=== PATIENT | male | born 1965 | race Caucasian/White ===

== ENCOUNTER 2017-09-24 05:38 | Observation (INO) | payer BC ==
--- OUTSIDE RECORDS SUMMARY | 2017-09-24 05:40 | XMS REPORT | Clinical Summary ---
:1965 Author Organization [facility] Address [address] [place] [address] Care Team Providers Name Role Phone Caio Hopper MD Primary Care Provider Allergies No Known Allergies Current Medications Prescription Sig. Disp. Refills Start Date End Date Status amitriptyline TAKE 2 TABLET 4 12/30/2015 Active (ELAVIL) 10 MG BY MOUTH tablet DIRECTED 3 HOURS BEFORE BEDTIME omega-3 acid ethyl Take 2 g by 3 10/25/2015 Active esters (LOVAZA) 1 mouth 2 (two) gram capsule times a day. potassium chloride Take 20 mEq by 3 10/14/2015 Active (K-DUR) 20 MEQ CR mouth once tablet daily. irbesartan-hydrochl Take 1 tablet 4 11/19/2015 Active orothiazide by mouth once (AVALIDE) 150-12.5 daily. mg per tablet VITAMIN D2 50,000 Take 1 capsule 3 12/30/2015 Active unit capsule by mouth once a week. FOLBIC 2.5-25-2 mg Take 1 tablet 3 11/23/2015 Active tablet by mouth once daily. acetaminophen Take 325 mg by Active (TYLENOL) 325 MG mouth every 6 tablet (six) hours as needed for fever. rosuvastatin Take 20 mg by 2 02/24/2017 Active (CRESTOR) 20 MG mouth once tablet daily. sodium,potassium,ma As directed 354 mL 0 01/14/2016 02/22/2017 Discontinued g sulfates (SUPREP BOWEL PREP KIT) 17.5-3.13-1.6 gram recon solnIndications: Colon cancer screening traMADol (ULTRAM) Take 1 tablet 25 tablet 0 02/22/2017 03/01/2017 50 mg tablet (50 mg total) by mouth every 6 (six) hours as needed for moderate pain for up to 7 days. Active Problems Problem Noted Date Acute appendicitis 01/26/2017 Encounters Date Type Specialty Care Team Description 03/02/2017 Office Visit General Surgery Kenton Mckinney MD follow-up (Primary Dx) 02/22/2017 Hospital Encounter General Surgery Kenton Mckinney MD 02/22/2017 Procedure Pass General Surgery 02/22/2017 Surgery General Surgery Kenton Mckinney ROBOTIC LEFT INGUINAL MD Leoncio HERNIA REPAIR 02/19/2017 Anesthesia Event General Surgery SkyyahirmeghanKimmanny, FLOYD 02/10/2017 Pre-Admit Testing Pre-Admission Kenton Mckinney Preop testing Appointment Testing MD Leoncio (Primary Dx) 01/26/2017 Office Visit General Surgery Kenton Mckinney Non-recurrent MD Leoncio unilateral inguinal hernia without obstruction or gangrene (Primary Dx) after 09/23/2016 Family History Medical History Relation Name Comments Heart disease Father Pancreatic cancer Maternal Grandfather Relation Name Status Comments Father Maternal Grandfather Social History Tobacco Use Types Packs/Day Years Used Date Former Smoker Quit: 01/28/1998 Comments: chew tobacco Alcohol Use Drinks/Week oz/Week Comments Yes 1-2 Glasses of wine 0.6 - 1.2 Sex Assigned at Date Recorded Not on file Last Filed Vital Signs Vital Sign Reading Time Taken Blood Pressure 124/80 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 Pulse 70 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 Temperature 36.1 C (96.9 F) 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 Respiratory Rate 18 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 Oxygen Saturation 96% 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 Inhaled Oxygen Concentration - - Weight 93.2 kg (205 lb 6.4 oz) 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 Height 180.3 cm (5' 11") 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 Body Mass Index 28.65 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 Plan of Treatment Health Maintenance Due Date Last Done Comments COLON CANCER SCREENING 2014 SHINGRIX VACCINE (#1) 2014 INFLUENZA VACCINE 11/24/2017 Implants Implanted Type Area Railroad Track Mechanic Device Expiration Model / Identifier Date Serial / Lot Mesh Surgcl Progrip [id number] [facility] - [id number] Surgical Left: COVIDIEN 09/24/2019 [id number] / Implanted: Qty: 1 on 02/22/2017 by Kenton Mckinney MD Mesh or Inguinal / Tissue [id number] [employer] Procedures Procedure Name Priority Date/Time Associated Diagnosis Comments PA AN ELECTIVE Routine 02/22/2017 7:58 AM ENDOTRACHEAL AIRWAY CDT Procedure Note - Annemarie Sharp MD - 02/22/2017 7:56 AM CDT Airway Date/Time: 02/22/2017 7:45 AM Performed by: ANNEMARIE SHARP Authorized by: ANNEMARIE SHARP Location: OR Urgency: Elective Difficult Airway: No Anesthesiologist: ANNEMARIE SHARP Performed by: anesthesiologist Preoxygenated with 100% O2: Yes C-spine Precautions Maintained Throughout: No Mask Ventilation: Easy mask (OPA needed) Final Airway Type: Endotracheal airway Final Endotracheal Airway: ETT Cuffed: Yes Technique Used: Direct laryngoscopy Devices/Methods Used in Placement: Intubating stylet Insertion Site: Oral Blade Type: Cooper Laryngoscope Blade/Videolaryngoscope Blade Size: 2 ETT Size (mm): 8.0 Cuff at minimum occlusion pressure: Yes Measured from: Lips ETT to Lips (cm): 23 Placement Verified by: CO2 detection, direct visualization and equal breath sounds Laryngoscopic view: Grade IIb - view of arytenoids or posterior of glottis only Rapid Sequence Induction (RSI): No Modified RSI: No Number of Attempts at Approach: 1 ROBOTIC LEFT INGUINAL HERNIA 02/22/2017 7:30 AM CDT Hernia, inguinal, left REPAIR Case Notes DAVINCI after 09/23/2016 Results ECG Pre/Post Op (02/10/2017 2:06 PM) Component Value Ref Range Ventricular rate 62 Atrial rate 62 PA interval 186 QRSD interval 110 QT interval 424 QTC interval 430 P axis 1 60 QRS axis 1 25 T wave axis 45 EKG impression Normal sinus rhythm-Normal ECG-No previous ECGs available- Specimen Performing Laboratory [facility] [address] [place] [address] Estimated GFR (02/10/2017 1:54 PM) Component Value Ref Range GFR Non Af Amer 78 mL/min/1.73 m2 GFR Af Amer >90 mL/min/1.73 m2 Comment: Chronic kidney disease: <60 mL/min/1.73m2 Kidney failure: <15 mL/min/1.73m2 The estimated GFR is calculated from the IDMS-traceable Modification of Diet in Renal Disease Equation. The accuracy of the calculation is poor when the creatinine is normal. Calculated values >90 mL/min/1.73m2 are not reported. This equation has not been validated in children (<18 years), women, the elderly (>70 years), or ethnic groups other than Caucasians and Americans. Specimen Performing Laboratory Plasma specimen [facility] DEPARTMENT OF PATHOLOGY AND GENOMIC MEDICINE [address] [place] [id number] CBC hemogram (02/10/2017 1:54 PM) Component Value Ref Range WBC 6.51 4.50 - 11.00 k/uL RBC 4.93 4.40 - 6.00 m/uL HGB 14.6 14.0 - 18.0 g/dL HCT 44.4 41.0 - 51.0 % MCV 90.1 82.0 - 100.0 fL MCH 29.6 27.0 - 34.0 pg MCHC 32.9 31.0 - 37.0 g/dL RDW - SD 43.6 37.0 - 55.0 fL MPV 10.0 8.8 - 13.2 fL Platelet count 237 150 - 400 k/uL Nucleated RBC 0.00 /100 WBC Specimen Performing Laboratory Blood [facility] DEPARTMENT OF PATHOLOGY AND GENOMIC MEDICINE [address] [place] [id number] Basic metabolic panel (02/10/2017 1:54 PM) Component Value Ref Range Sodium 144 135 - 148 mEq/L Potassium 4.2 3.5 - 5.0 mEq/L Chloride 102 98 - 112 mEq/L CO2 28 24 - 31 mEq/L Anion gap 14 7 - 15 mEq/L Comment: Starting from July , anion gap calculation no longer incorporates potassium. Please note the change. BUN 11 6 - 20 mg/dL Creatinine 1.0 0.7 - 1.2 mg/dL Glucose 85 65 - 99 mg/dL Calcium 9.6 8.3 - 10.2 mg/dL Specimen Performing Laboratory Plasma specimen [facility] DEPARTMENT OF PATHOLOGY AND GENOMIC MEDICINE [address] [place] [id number] after 09/23/2016 Insurance Payer Benefit Plan / Group Subscriber ID Type Phone Address BCBS BCBS CHOICE PPO/FEDERAL EMPL PPO xxxxxxxxxxxx PPO Work: Jerry ADRIAN [phone] [address], [place]: [place] [id number]
[2017-09-24] MEDS ORDERED: MORPHINE 4 MG/ML SYR ONE (05:58)
[2017-09-24] MEDS ORDERED: ONDANSETRON 4 MG/2 ML VIAL ONE ×2 (05:58→10:46)
[2017-09-24 06:09] LABS: Absolute Monocytes 1.5 K/uL (0.1-1.3); Absolute Neutrophil 7.6 K/uL (1.8-8.0); Basophils % 0.9 % (0-1.3); Eosinophils % 1.6 % (0-4.4); Hematocrit 46.4 % (39.6-49.0); Lymphocytes % 29.5 % (15.3-44.8); MCH 29.7 pg (27.0-35.0); MPV 8.4 fL (7.6-11.3); Monocytes % 11.4 % (3.3-12.3); RBC Red Blood Cell Count 5.15 M/uL (4.33-5.43)
[2017-09-24] MEDS ORDERED: KETOROLAC 30 MG/ML INJ ONE ×2 (06:24→11:13)
[2017-09-24] MEDS ORDERED: FENTANYL CITR 100 MCG/2 ML ONE ×3 (06:47→10:45)
[2017-09-24] MEDS ORDERED: NA CHLORIDE 0.9% 0 ML ONE (06:48)
[2017-09-24 06:51] LABS: Albumin 4.3 g/dL (3.2-5.5); Bilirubin Direct 0.2 mg/dL (0-0.2); Bilirubin Total 0.6 mg/dL (0.3-1.2)
[2017-09-24] MEDS ORDERED: NA CHLORIDE 0.9% 1,000 ML ONE ×2 (06:58→08:00)
--- NOTE | 2017-09-24 07:17 | RAD REPORT ---
EXAM DESCRIPTION: CT - Stone Protocol - 09/24/2017 6:59 am CLINICAL HISTORY: Right-sided flank pain, difficulty urinating COMPARISON: None. TECHNIQUE: Axial 5 mm thick images were obtained without oral or IV contrast. The [id number] span s the entirety of the system partially obscuring uppermost abdomen and lung bases. All CT scans are performed using dose optimization technique as appropriate and may include automated exposure control or mA/KV adjustment according to patient size. FINDINGS: Mild right-sided hydronephrosis is present secondary to a 3 millimeter stone at the UVJ. N o other obstructing or nonobstructing calculi in either kidney. A 12 millimeter round exophytic mass lower pole right kidney has the attenuation of the cyst. There is a 3 centimeter oval mass in the kaye tral left kidney also with homogeneous fluid attenuation. No suspicious renal masses. Isodense masses and pyelonephritis are not excluded on a stone protocol CT scan. Partially filled urinary bladder sh ows no suspicious finding. Imaged portions of the liver, spleen and pancreas show no suspicious findings on non-contrast imaging . No gallbladder or biliary tree abnormality identified. No significant adrenal finding. No suspicious bowel findings. No hernia, mass or bulky lymphadenopathy noted. No free air, free fluid or inflammatory stranding. No significant bony abnormality. IMPRESSION: Mild right-sided hydronephrosis secondary to a 3 mm UVJ calculus. Isodense masses and pyelonephritis are not excluded on stone protocol technique.
[2017-09-24] MEDS ORDERED: CEFTRIAXONE/SWI 1gm 1 GM/10 ML SYR ONE (08:00)
--- NOTE | 2017-09-24 08:24 | ER ---
Nurse's Notes [facility] Name: oG Ferrer Jr Age: 51 yrs Sex: Male : 1965 Arrival Date: 09/24/2017 Time: 05:40 Bed 2 Private MD: Sami Mcmanus Diagnosis: Calculus of ureter-Right Presentation: 09/24 05:48 Presenting complaint: Patient states: he is having right sided flank pain since 0300 bb this morning with difficulty urinating pt is unable to keep still or sit on the stretcher due to the pain. Transition of care: patient was not received from another setting of care. Onset of symptoms was September 24, 2017 at 03:00. Risk Assessment: Do you want to hurt yourself or someone else? Patient reports no desire to harm self or others. Initial Sepsis Screen: Does the patient meet any 2 criteria? No. Patient's initial sepsis screen is negative. Does the patient have a suspected source of infection? No. Patient's initial sepsis screen is negative. Care prior to arrival: None. 05:48 Method Of Arrival: Ambulatory bb 05:48 Acuity: DHIRAJ 3 bb Historical: - Allergies: 05:51 No Known Allergies; bb - Home Meds: 05:51 BP med [Active]; cholesterol med [Active]; bb - PMHx: 05:51 Hypertension; Hyperlipidemia; bb - PSHx: 05:51 Appendectomy; Addenoids; bb - Immunization history:: Adult Immunizations up to date. - Social history:: Smoking status: Patient/guardian denies using tobacco, Patient uses alcohol, occasionally. Patient/guardian denies using street drugs. - Ebola Screening: : Patient negative for fever greater than or equal to 101.5 degrees Fahrenheit, and additional compatible Ebola Virus Disease symptoms. Screenin:55 Abuse screen: Denies threats or abuse. Nutritional screening: No deficits noted. jd3 Tuberculosis screening: No symptoms or risk factors identified. Fall Risk IV access (20 points). Mental Status- Oriented to own ability (0 pts). Total Ruiz Fall Scale indicates No Risk (0-24 pts). Assessment: 05:52 General: Appears uncomfortable, Behavior is cooperative, appropriate for age. Pain: jd3 Complains of pain in anterior aspect of left lateral abdomen, posterior aspect of left lateral abdomen, anterior aspect of right lateral abdomen and posterior aspect of right lateral abdomen Pain currently is 10 out of 10 on a pain scale. Quality of pain is described as sharp, Pain began 3 hours ago. Also complains of nausea. Neuro: Level of Consciousness is awake, alert, obeys commands, Oriented to person, place, time, situation. Cardiovascular: Heart tones S1 S2 present Capillary refill < 3 seconds Patient's skin is warm and dry. Respiratory: Airway is patent Respiratory effort is even, unlabored, Respiratory pattern is regular, symmetrical, Breath sounds are clear bilaterally. GI: Abdomen is round Bowel sounds present X 4 quads. Abd is soft and non tender X 4 quads. Reports nausea, vomiting. : No signs and/or symptoms were reported regarding the genitourinary system. EENT: No signs and/or symptoms were reported regarding the EENT system. Derm: Skin is intact, Skin is diaphoretic, Skin is normal, Skin temperature is warm. Musculoskeletal: Circulation, motion, and sensation intact. Capillary refill < 3 seconds. 07:51 Reassessment: Abhishek RAMIREZ at bedside re evaluating pt at this time, updating on POC, pt sg to be admitted, awaiting admission orders at this time. 08:10 Reassessment: Patient appears in no apparent distress at this time. Patient is alert, sg oriented x 3, equal unlabored respirations, skin warm/dry/pink. pt assisted to the restroom via wheelchair, pt to void x1, provided with supplies and instructions for clean catch urine specimen. 08:30 Reassessment: pt back in bed at this time, pt family and friends at bedside. sg 08:49 Reassessment: Patient appears in no apparent distress at this time. Patient is alert, sg oriented x 3, equal unlabored respirations, skin warm/dry/pink. pt family member at nurses station, reports that the pts pain is returning, Abhsihek RAMIREZ notified, awaiting orders at this time. Vital Signs: 05:51 BP 171 / 111; Pulse 65; Resp 20 S; Temp 100.4(O); Pulse Ox 99% on R/A; Weight 90.72 kg bb (R); Height 5 ft. 10 in. (177.80 cm) (R); Pain 10/10; 06:07 BP 173 / 99; Pulse 68; Resp 20 S; Pulse Ox 99% on R/A; Pain 10/10; jd3 07:25 BP 157 / 90; Pulse 71; Resp 17 S; Temp 98.1; Pulse Ox 100% on R/A; Pain 10/10; sg 08:32 BP 147 / 83; Pulse 77; Resp 18 S; Pulse Ox 100% on R/A; Pain 6/10; sg 05:51 Body Mass Index 28.70 (90.72 kg, 177.80 cm) bb ED Course: 05:40 Patient arrived in ED. am2 05:40 Sami Mcmanus MD is Private Physician. am2 05:49 Triage completed. bb 05:51 Arm band placed on Patient placed in an exam room, on a stretcher, on pulse oximetry. bb Family accompanied patient. 05:52 Tomas Santiago RN is Primary Nurse. jd3 05:55 Patient has correct armband on for positive identification. Bed in low position. Call jd3 light in reach. Side rails up X2. Adult w/ patient. 05:57 Inserted saline lock:. mg2 05:57 Inserted saline lock: 20 gauge in right antecubital area, using aseptic technique. ea Blood collected. 06:26 Masood Tsang PA is PHCP. cp 06:26 Russ Killian MD is Attending Physician. cp 06:[address] Patient moved to CT via wheelchair. kw1 06:59 CT Stone Protocol In Process Unspecified. EDMS 07:00 CT completed. Patient tolerated procedure well. Patient moved back from CT. kw1 07:41 Primary Nurse role handed off by Tomas Santiago RN sg 07:41 Girish Calderon RN is Primary Nurse. sg 07:56 Fili Beasley MD is Attending Physician. cp 08:10 First set of blood cultures drawn by il, by venipuncture 23G to left ac. dh3 08:23 Windy Pineda MD is Hospitalizing Provider. cp 09:40 No provider procedures requiring assistance completed. Patient admitted, IV remains in sg place. intact, No redness/swelling at site. Administered Medications: 06:02 Drug: morphine 4 mg Route: IVP; Site: right antecubital; jd3 06:26 Follow up: Response: No adverse reaction; Pain is unchanged, physician notified mg2 06:02 Drug: Zofran 4 mg Route: IVP; Site: right antecubital; jd3 06:26 Follow up: Response: No adverse reaction mg2 06:25 Drug: TORadol 30 mg Route: IVP; Site: right antecubital; mg2 07:04 Follow up: Response: No adverse reaction; Pain is decreased mg2 07:03 Drug: NS 0.9% 1000 ml Route: IV; Rate: 1 bolus; Site: right antecubital; mg2 07:03 Drug: fentaNYL (PF) 25 mcg Route: IVP; Site: right antecubital; mg2 08:00 Follow up: Response: No adverse reaction; Pain is decreased sg 08:22 Not Given (Physician Discretion): Tylenol 1000 mg PO once sg 08:55 Drug: NS 0.9% 1000 ml Route: IV; Rate: 125 ml/hr; Site: right antecubital; sg 09:01 Drug: fentaNYL (PF) 50 mcg Route: IVP; Site: right antecubital; aa5 09:09 Drug: Rocephin - (cefTRIAXone) 1 grams Route: IVPB; Infused Over: 30 mins; Site: right sg antecubital; 09:10 Follow up: Response: No adverse reaction; IV Status: Completed infusion; medication sg administered slow IVP as per pharmacy 09:48 Not Given (Other Intervention Used): NS 0.9% (30 ml/kg) 30 ml/kg IV at bolus once; sg Sepsis Protocol Intake: Outcome: 08:24 Decision to Hospitalize by Provider. cp 09:40 Admitted to OR accompanied by nurse, family with patient, via wheelchair, room 204, sg with chart, Report called to Bedside report given to Beverley PAZ 09:40 Condition: stable 09:40 Instructed on the need for admit, safety practices, Demonstrated understanding of instructions. 09:49 Patient left the ED. sg Signatures: Dispatcher [employer] EDMS Girish Calderon RN RN sg Radha Cotton RN Hanane Long RN RN aa5 Masood Tsang PA PA Gretchen Vasquez am2 Laly Jacobo 3 Sydni Long RN RN ea Davies, Jonathon, RN RN jd3 Lesly Cook kw1 Zachary Carlson RN RN mg2 Corrections: (The following items were deleted from the chart) 06:04 05:52 GI: Abdomen is round Bowel sounds present X 4 quads. jd3 jd3 06:04 05:52 Derm: Skin is intact, Skin is dry, Skin is normal, Skin temperature is warm jd3 jd3
--- NOTE | 2017-09-24 08:24 | EDPHYS ---
Physician Documentation [facility] Name: Go Ferrer Jr Age: 51 yrs Sex: Male : 1965 Arrival Date: 09/24/2017 Time: 05:40 Bed 2 Private MD: Sami Mcmanus ED Physician Fili Beasley HPI: 09/24 06:15 This 51 yrs old Male presents to ER via Ambulatory with complaints of Flank cp Pain. 06:15 The patient complains of pain in the right flank. The pain radiates to the abdomen. cp Onset: The symptoms/episode began/occurred this morning, at 03:00. Associated signs and symptoms: Pertinent positives: fever, Pertinent negatives: diarrhea, vomiting. Severity of pain: in the emergency department the pain is actually worse moderately. Historical: - Allergies: 05:51 No Known Allergies; bb - Home Meds: 05:51 BP med [Active]; cholesterol med [Active]; bb - PMHx: 05:51 Hypertension; Hyperlipidemia; bb - PSHx: 05:51 Appendectomy; Addenoids; bb - Immunization history:: Adult Immunizations up to date. - Social history:: Smoking status: Patient/guardian denies using tobacco, Patient uses alcohol, occasionally. Patient/guardian denies using street drugs. - Ebola Screening: : Patient negative for fever greater than or equal to 101.5 degrees Fahrenheit, and additional compatible Ebola Virus Disease symptoms. ROS: 06:20 Constitutional: Positive for fever, Negative for body aches, chills. cp 06:20 Eyes: Negative for injury, pain, redness, and discharge. cp 06:20 ENT: Negative for drainage from ear(s), ear pain, sore throat, difficulty swallowing, difficulty handling secretions. 06:20 Cardiovascular: Negative for chest pain, edema, palpitations. 06:20 Respiratory: Negative for cough, shortness of breath, wheezing. 06:20 Abdomen/GI: Positive for abdominal pain, nausea, Negative for vomiting, diarrhea, constipation, anorexia, dysphagia, black/tarry stool, rectal bleeding. 06:20 Back: Positive for flank pain, on the right, Negative for injury or acute deformity, decreased range of motion. 06:20 Skin: Negative for cellulitis, rash. 06:20 Neuro: Negative for altered mental status, headache, weakness. 06:20 All other systems are negative. Exam: 06:25 Head/Face: Normocephalic, atraumatic. Eyes: Pupils equal round and reactive to light, cp extra-ocular motions intact. Lids and lashes normal. Conjunctiva and sclera are non-icteric and not injected. Cornea within normal limits. Periorbital areas with no swelling, redness, or edema. ENT: Nares patent. No nasal discharge, no septal abnormalities noted. Tympanic membranes are normal and external auditory canals are clear. Oropharynx with no redness, swelling, or masses, exudates, or evidence of obstruction, uvula midline. Mucous membranes moist. Neck: Trachea midline, no thyromegaly or masses palpated, and no cervical lymphadenopathy. Supple, full range of motion without nuchal rigidity, or vertebral point tenderness. No Meningismus. Chest/axilla: Normal chest wall appearance and motion. Nontender with no deformity. No lesions are appreciated. 06:25 Constitutional: The patient appears alert, awake, non-toxic, well developed, well nourished, in obvious pain, uncomfortable. 06:25 Cardiovascular: Rate: normal, Rhythm: regular, Edema: is not appreciated, JVD: is not appreciated. 06:25 Respiratory: the patient does not display signs of respiratory distress, Respirations: normal, no use of accessory muscles, no retractions, no splinting, no tachypnea, labored breathing, is not present, Breath sounds: are clear throughout, no decreased breath sounds, no stridor, no wheezing. 06:25 Abdomen/GI: Inspection: abdomen appears normal, Bowel sounds: active, all quadrants, Palpation: soft, in all quadrants, moderate abdominal tenderness, in the right upper quadrant and right lower quadrant, rebound tenderness, is not appreciated, voluntary guarding, is elicited in the right upper quadrant and right lower quadrant. 06:25 Back: CVA tenderness, is noted on the right. 06:25 Skin: cellulitis, is not appreciated, no rash present. 06:25 Neuro: Orientation: to person, place \T\ time. Mentation: lucid, able to follow commands, Cerebellar function: is grossly normal, Motor: moves all fours, strength is normal, Sensation: no obvious gross deficits. Vital Signs: 05:51 BP 171 / 111; Pulse 65; Resp 20 S; Temp 100.4(O); Pulse Ox 99% on R/A; Weight 90.72 kg bb (R); Height 5 ft. 10 in. (177.80 cm) (R); Pain 10/10; 06:07 BP 173 / 99; Pulse 68; Resp 20 S; Pulse Ox 99% on R/A; Pain 10/10; jd3 07:25 BP 157 / 90; Pulse 71; Resp 17 S; Temp 98.1; Pulse Ox 100% on R/A; Pain 10/10; sg 08:32 BP 147 / 83; Pulse 77; Resp 18 S; Pulse Ox 100% on R/A; Pain 6/10; sg 05:51 Body Mass Index 28.70 (90.72 kg, 177.80 cm) bb MDM: 06:26 Patient medically screened. cp 07:25 Data reviewed: vital signs, nurses notes, lab test result(s), radiologic studies, CT cp scan. 07:54 Physician consultation: Ambrose Allen MD was called at 07:50, was contacted at 07:50, regarding consult, patient's condition, and will see patient later today. 09/24 05:58 Order name: Amylase, Serum; Complete Time: 07:23 aa09/24 05:58 Order name: Basic Metabolic Panel; Complete Time: 07:23 aa09/24 07:23 Interpretation: Normal except: GLUC 127; GFR 64. cp 09/24 05:58 Order name: CBC with Diff; Complete Time: 06:29 aa09/24 09:38 Interpretation: Normal except: WBC 13.4; MNA 1.5. cp 09/24 05:58 Order name: Creatinine for Radiology; Complete Time: 07:23 aa09/24 05:58 Order name: Hepatic Function; Complete Time: 07:23 aa09/24 07:23 Interpretation: Normal except: GLOB 3.7. cp 09/24 05:58 Order name: Lipase; Complete Time: 07:23 aa09/24 05:58 Order name: Urine Microscopic Only; Complete Time: 09:37 aa1 09/24 09:38 Interpretation: Normal except: UBACT 20-50. cp 09/24 05:58 Order name: CT Stone Protocol; Complete Time: 07:23 aa1 09/24 07:26 Order name: Lactate; Complete Time: 09:37 cp 09/24 07:26 Order name: Procalcitonin; Complete Time: 09:37 cp 09/24 07:26 Order name: Blood Culture Adult (2) cp 09/24 08:28 Order name: Urine Dipstick--Ancillary (enter results); Complete Time: 09:37 bd 09/24 09:38 Interpretation: Normal except: USPGR >1.030; UBLD 2+. cp 09/24 05:58 Order name: IV Saline Lock; Complete Time: 06:03 aa1 09/24 05:58 Order name: Labs collected and sent; Complete Time: 06:03 aa1 09/24 06:05 Order name: Urine Dipstick-Ancillary (obtain specimen); Complete Time: 08:27 jd3 09/24 07:26 Order name: NPO; Complete Time: 07:33 cp Administered Medications: 06:02 Drug: morphine 4 mg Route: IVP; Site: right antecubital; jd3 06:26 Follow up: Response: No adverse reaction; Pain is unchanged, physician notified mg2 06:02 Drug: Zofran 4 mg Route: IVP; Site: right antecubital; jd3 06:26 Follow up: Response: No adverse reaction mg2 06:25 Drug: TORadol 30 mg Route: IVP; Site: right antecubital; mg2 07:04 Follow up: Response: No adverse reaction; Pain is decreased mg2 07:03 Drug: NS 0.9% 1000 ml Route: IV; Rate: 1 bolus; Site: right antecubital; mg2 07:03 Drug: fentaNYL (PF) 25 mcg Route: IVP; Site: right antecubital; mg2 08:00 Follow up: Response: No adverse reaction; Pain is decreased sg 08:22 Not Given (Physician Discretion): Tylenol 1000 mg PO once sg 08:55 Drug: NS 0.9% 1000 ml Route: IV; Rate: 125 ml/hr; Site: right antecubital; sg 09:01 Drug: fentaNYL (PF) 50 mcg Route: IVP; Site: right antecubital; aa5 09:09 Drug: Rocephin - (cefTRIAXone) 1 grams Route: IVPB; Infused Over: 30 mins; Site: right sg antecubital; 09:10 Follow up: Response: No adverse reaction; IV Status: Completed infusion; medication sg administered slow IVP as per pharmacy 09:48 Not Given (Other Intervention Used): NS 0.9% (30 ml/kg) 30 ml/kg IV at bolus once; sg Sepsis Protocol Disposition: 09/24/17 08:24 Hospitalization ordered by Windy Pineda for Observation. Preliminary diagnosis is Calculus of ureter - Right. - Bed requested for Telemetry/MedSurg (observation). - Status is Observation. sg - Condition is Stable. - Problem is new. - Symptoms have improved. UTI on Admission? No Addendum: 09/26/2017 13:41 Co-signature as Attending Physician, Fili Beasley MD. g s Signatures: Dispatcher [employer] EDMS Sarahi Arellano Steven, RN RN sg Syl Disla RN RN aa1 Radha Cotton RN RN bb Hanane Cooper RN RN aa5 Masood Tsang PA PA cp Starr, Gregory, MD MD gs Tomas Santiago, RN RN jd3 Russ Killian MD MD tw4 Zachary Carlson RN RN mg2 Corrections: (The following items were deleted from the chart) 09/24 09:13 08:24 Hospitalization Ordered by Windy Pineda MD for Observation. Preliminary bd diagnosis is Calculus of ureter - Right. Bed requested for Telemetry/MedSurg (observation). Status is Observation. Condition is Stable. Problem is new. Symptoms have improved. UTI on Admission? No. cp 09:38 06:29 Normal except: WBC 13.4. cp cp 09:49 09:13 09/24/2017 08:24 Hospitalization Ordered by Windy Pineda MD for Observation. sg Preliminary diagnosis is Calculus of ureter - Right. Bed requested for Telemetry/MedSurg (observation). Status is Observation. Condition is Stable. Problem is new. Symptoms have improved. UTI on Admission? No. bd
[2017-09-24] MEDS ORDERED: ONDANSETRON 4 MG/2 ML VIAL IV PRN (08:49)
[2017-09-24 08:50] LABS: Urine RBC <5 /HPF (NONE SEEN)
[2017-09-24 08:51] LABS: Urine Bacteria 20-50 /HPF (NONE SEEN); Urine Culture Reflex Order REFLEXED; Urine Mucus 1+ /HPF (NONE SEEN)
[2017-09-24 08:52] LABS: Urine Blood 2+ (NEG); Urine Glucose NEGATIVE (NEG); Urine Protein TRACE (NEG); Urine Specific Gravity >1.030 (1.005-1.030); Urine pH 5.5 (5.0-7.0)
[2017-09-24] MEDS ORDERED: NA CHLORIDE 0.9% 1,000 ML IV SCH (09:00)
[2017-09-24] MEDS ORDERED: PROMETHAZINE 25 MG/ML VIAL ONE (09:51)
[2017-09-24] MEDS ORDERED: HYDROCODONE/APAP 5/325 MG TAB PO PRN (10:18)
[2017-09-24] MEDS ORDERED: MIDAZOLAM HCL 2 MG/2 ML INJ ONE (10:44)
[2017-09-24] MEDS ORDERED: PROPOFOL 200 MG/20 ML VIAL IV ONE (10:44)
[2017-09-24] MEDS ORDERED: PROMETHAZINE 25 MG/ML VIAL IV ONE (11:00)
[2017-09-24] MEDS ORDERED: Mastisol Adhesive Liq ONE (11:23)
--- NOTE | 2017-09-24 12:00 | RAD REPORT ---
EXAM DESCRIPTION: RAD - Urethrocystogrphy Retrograde - 09/24/2017 11:53 am FINDINGS: Abdominal fluoroscopy performed. Multiple portable intraoperative images obtained during a ssisted placement of right ureteral stent. No unexpected findings.
[2017-09-24 12:02] VITALS: TEMP 98.1
--- NOTE | 2017-09-24 12:02 | P.SSS ---
Patient History Date of Service: 09/24/17 Primary Care Provider: Dr Mcmanus Reason for admission: UVJ stone History of Present Illness: 51 y/o M with pmhx of HTN and HLP presented to the ED with complains of right flank pain. Pt states pain started 2 days ago and got worse overtime. Fever noted at home as well. Patient also complained of having some nausea and vomiting. Which all started about 2-3 days ago and progressively got worse. Patient stated that he decided to come to the ER because his pain was excruciating and was intermittent in nature. Patient stated that pain was more like colicky. In the ER patient was found to have right UVJ stone and thus was admitted for further treatment. Allergies No Known Allergies Allergy (Unverified 09/24/17 09:52) Review of Systems General: As per HPI Physical Examination - Vital Signs Temperature: 98.1 F Blood Pressure: 147/83 Pulse: 77 Respirations: 18 - Physical Exam General: Alert, In no apparent distress HEENT: Atraumatic, PERRLA, Mucous membr. moist/pink, EOMI, Sclerae nonicteric Neck: Supple, 2+ carotid pulse no bruit, No LAD, Without JVD or thyroid abnormality Respiratory: Clear to auscultation bilaterally, Normal air movement Cardiovascular: Regular rate/rhythm, Normal S1 S2 Gastrointestinal: Normal bowel sounds, No tenderness Musculoskeletal: Other (CVA tenderness on the right side) Integumentary: No rashes Neurological: Normal speech, Normal strength at 5/5 x4 extr, Normal tone Lymphatics: No axilla or inguinal lymphadenopathy - Studies Laboratory Data (last 24 hrs) 09/24/17 05:52: Creatinine 1.18 09/24/17 05:52: WBC 13.4 H, Hgb 15.3, Hct 46.4, Plt Count 305 09/24/17 05:52: Sodium 138, Potassium 4.0, BUN 19, Creatinine 1.19, Glucose 127 H, Total Bilirubin 0.6, AST 31, ALT 39, Alkaline Phosphatase 64, Amylase 51, Lipase 32 - Diagnosis (Problem(s)) (1) Nephrolithiasis Current Visit: Yes Status: Acute Plan: Right UVJ stone 3MM on the abd CT with Hydronephrosis -Urology consulted. Reccs appreciated -Pt s/p Cystoscopy with stent placement with urology now. -DC after observation in 24 hrs. -Pain mgmt and PO abx at home. (2) Pyelonephritis Current Visit: Yes Status: Acute Plan: Most likely 2.2 to Obstruction -PO abx upon discharge home (3) HTN (hypertension) Current Visit: Yes Status: Chronic Plan: Restart home medication Qualifiers: Hypertension type: essential hypertension Qualified Code(s): I10 - Essential (primary) hypertension - Disposition Disposition: ROUTINE DISCHARGE Condition: GOOD
[2017-09-24 12:14] VITALS: O2SAT 98
[2017-09-24 12:52] VITALS: BMI 28.7
--- NOTE | 2017-09-24 13:37 | EKG ---
Test Date: 2017-09-24 Test Time: 09:59:20 Incident Response Consultant: MARCELINA MEASUREMENT RESULTS: Intervals: Rate: 59 IL: 176 QRSD: 120 QT: 432 QTc: 427 [place]: P: 55 [place]: 176 QRS: 51 T: 41 INTERPRETIVE STATEMENTS: Sinus bradycardia Borderline ECG Compared to ECG 02/26/2010 19:00:26 Sinus rhythm no longer present Electronically Signed On 09-24-17 13:37:04 CDT by Mendoza Odom
--- NOTE | 2017-09-24 14:05 | CON ---
History Of Present Illness: This is a pleasant 51-year-old gentleman, who was in good state of health until 3:00 a.m. this morning, when he also had a right flank pain, associated with nausea, vomiting, and low-grade fever, 100s. Did have some chills. Suffering from constipation. No diarrhea however. He normally does not drink much water. He came to the emergency room, where a 3- mm stone was seen at the right UVJ. He needs a cysto stent, possible stone extraction if it is easy to be done since at the right UVJ. I have talked to his personal physician, Dr. Mcmanus. We will need to proceed with the plan. He may be able to go home later today. Past Medical History: Hypertension, hypercholesterolemia. Past Surgical History: Appendectomy, had adenoids removal. Allergies: NONE. Family History: Kidney stones. Social History: No tobacco, smoking, drinking, or drug use. Review of Systems: A 10-point review of systems essentially normal. Physical Examination: Vital signs: Showed BP 171/111, respiratory rate 20, pulse 65, 99% sat, and T- max 100.4. His height is 5 feet 10 inches. General: He is alert and oriented x3. He is in normal general appearance. No acute distress. HEENT: Atraumatic, normocephalic. Chest: Clear. Heart: S1, S2. Abdomen: Soft, nontender. : Deferred at this point. We will examine in the OR. Laboratory Data: White count slightly elevated at 13.4, H and H of 15 and 46, and platelet count 305. Chemistry; sodium 138, potassium 4.0, chloride 102, carbon dioxide 28, BUN 19, creatinine 1.2, GFR 64, and glucose 127. LFTs normal. Urine shows pH 5.5, specific gravity 1.030, blood 2+ bacteria 20-50. Microbiology setup pending. Assessment: A 3-mm right ureterovesical junction stone, pain. Plan: Plan is for cystoscopy, double J-stent placement, possible ureteroscopy if easy to be done with patient with retrograde flow of urine. The patient knows the risks and benefits, and expected the possibility. We will proceed judiciously if possible. All the risks and benefits have been reviewed. The patient wishes to proceed. MYLA/[email or web address] Voice ID: [id number] Report ID: [id number]
[2017-09-24 17:07] VITALS: BP 147/83
== END 2017-09-24 18:05 | disposition home or self-care (01) ==
LOC: ER 05:38 → ERHOLD 08:48 → 2ND 12:15
PROVIDERS: ADMIT Family Medicine; ATTEND Family Medicine
PROC: 0TC68ZZ Extirpation of Matter from Right Ureter, Via Natural or Artificial Opening Endoscopic (ICD-10-PCS; 2017-09-24)
PROC: 0T768DZ Dilation of Right Ureter with Intraluminal Device, Via Natural or Artificial Opening Endoscopic (ICD-10-PCS; principal; 2017-09-24 10:00)
DX: N13.2 Hydronephrosis with renal and ureteral calculous obstruction (principal); N10 Acute pyelonephritis; E78.5 Hyperlipidemia, unspecified; I10 Essential (primary) hypertension; E78.00 Pure hypercholesterolemia, unspecified
CPT/HCPCS: 36415; 51610; 74176; 74450; 76377; 80048; 80076; 81003; 81015; 82150; 82360; 83605; 83690; 84145; 85025; 87040; 87086; 87088; 88300; 93005; 96374; 96375; 99285; G0378; J0696; J2250; J2405; J2550; J3010; J7030; Q9967